=== PATIENT | female | born 1955 | race Two or more races ===

== ENCOUNTER 2022-07-31 19:19 | Emergency (ER) | payer OTHER ==
[~2022-07-31] VITALS: Ht 160 cm; Wt 74.4 kg
[2022-07-31] MEDS ORDERED: NEXIUM2.5 MG PO (19:43)
[2022-07-31] MEDS ORDERED: LEXAPRO5 MG PO (19:43)
[2022-07-31] MEDS ORDERED: BENICAR20 MG PO (19:43)
[2022-07-31] MEDS ORDERED: ADULT LOW DOSE81 M1 PO (19:43)
[2022-07-31] MEDS ORDERED: CRESTOR10 MG PO (19:44)
== END 2022-08-01 02:06 ==
LOC: ER 19:19
DX: R07.9 Chest pain, unspecified (principal); Z88.8 Allergy status to other drugs, medicaments and biological substances